=== PATIENT | male | born 1985 | race Two or more races ===

== ENCOUNTER 2017-07-19 18:34 | Emergency (ER) | payer SELFPAY ==
[2017-07-19 19:37] LABS: ADD MAN DIFF? NO
[2017-07-19 19:38] LABS: BASO % 0 % (0-3); EOS # 0.1 x10^3/uL (0.0-0.7); EOS % 2 % (0-3); HEMATOCRIT 44.5 % (39.0-53.0); HEMOGLOBIN 15.4 g/dL (13.0-17.5); LYMPH # 2.5 x10^3/uL (1.0-4.8); LYMPH % 43 % (24-48); MEAN CORPUSCULAR HEMOGLOBIN 31 pg (25-35); MEAN CORPUSCULAR HGB CONC 35 g/dL (31-37); MEAN CORPUSCULAR VOLUME 90 fL (79-100); MONO # 0.4 x10^3/uL (0.0-1.1); MONO % 8 % (0-9); NEUT # 2.8 x10^3uL (1.8-7.7); NEUT % 47 % (31-73); PLATELET COUNT 149 x10^3/uL (140-400); RED BLOOD COUNT 4.97 x10^6/uL (4.30-5.70); RED CELL DISTRIBUTION WIDTH 13.4 % (11.5-14.5); WHITE BLOOD COUNT 5.9 x10^3/uL (4.0-11.0)
[2017-07-19] MEDS: ACETAMINOPHEN 325 MG TABLET. PO (19:50)
[2017-07-19] MEDS: MECLIZINE HCL 12.5 MG TABLET. PO (19:50)
[2017-07-19 19:56] LABS: ANION GAP 8 (6-14); BLOOD UREA NITROGEN 21 mg/dL (8-26); BUN/CREATININE RATIO 21 (6-20); CALCIUM 9.1 mg/dL (8.5-10.1); CARBON DIOXIDE 28 mmol/L (21-32); CHLORIDE 103 mmol/L (98-107); GFR 87.2; GLUCOSE 115 mg/dL (70-99); POTASSIUM 3.5 mmol/L (3.5-5.1); SODIUM 139 mmol/L (136-145)
[2017-07-19 19:59] LABS: BILIRUBIN,URINE NEGATIVE (NEG); CLARITY,URINE CLEAR; COLOR,URINE YELLOW; GLUCOSE,URINE NEGATIVE (NEG); NITRITE,URINE NEGATIVE (NEG); PROTEIN,URINE NEGATIVE (NEG-TRACE); UROBILINOGEN,URINE 0.2 mg/dL (0.2 mg/dL)
[2017-07-19 20:03] LABS: ALBUMIN 4.4 g/dL (3.4-5.0); ALBUMIN/GLOBULIN RATIO 1.3 (1.0-1.7); ALK PHOS 111 U/L (46-116); ALT (SGPT) 38 U/L (16-63); AST (SGOT) 19 U/L (15-37); BACTERIA,URINE 0 /HPF (0-FEW); CREATINE KINASE 429 U/L (39-308); MAGNESIUM 2.3 mg/dL (1.8-2.4); RBC,URINE 0 /HPF (0-2); SQUAMOUS EPITHELIAL CELL,UR OCC /LPF; TOTAL BILIRUBIN 0.4 mg/dL (0.2-1.0); TOTAL PROTEIN 7.9 g/dL (6.4-8.2); WBC,URINE 0 /HPF (0-4)
[2017-07-19 20:05] LABS: TROPONINI < 0.017 ng/mL (0.000-0.055)
== END 2017-07-19 21:35 | disposition home or self-care (01) ==
LOC: ER 18:34
DX: R42 Dizziness and giddiness (principal); R51 Headache; M62.82 Rhabdomyolysis; F41.9 Anxiety disorder, unspecified; K21.9 Gastro-esophageal reflux disease without esophagitis
CPT/HCPCS: 36415; 80053; 81001; 82550; 83735; 84484; 85025; 93005; 99285-25; J8597

== ENCOUNTER 2017-07-27 16:34 | Emergency (ER) | payer SELFPAY ==
[2017-07-27] MEDS: KETOROLAC 60 MG/2 ML INJ. IM (17:39)
== END 2017-07-27 18:31 | disposition home or self-care (01) ==
LOC: ER 16:34
DX: F41.9 Anxiety disorder, unspecified (principal); R42 Dizziness and giddiness; R51 Headache; K21.9 Gastro-esophageal reflux disease without esophagitis
CPT/HCPCS: 70450; 96372; 99284; J1885

== ENCOUNTER 2020-06-15 20:28 | Emergency (ER) | payer SELFPAY ==
[~2020-06-15] VITALS: Ht 170.2 cm; Wt 76.6 kg
[~2020-06-15 20:28] MED LIST: ACET325T9 PO; HYDR25TA PO; MECL-75 PO; ONDA4TAB10 SL
--- NOTE | 2020-06-16 01:02 | PHYS DOC ---
Past Medical History Past Medical History: Anxiety, GERD, Migraines Past Surgical History: No Surgical History Smoking Status: Never Smoker Alcohol Use: None Drug Use: None General Adult EDM: Chief Complaint: MULTIPLE COMPLAINTS HPI: HPI: Patient is a 34-year-old [place]-speaking male presenting for migraine. Initial history obtained by myself and further confirmed with direct care counselor services. Reports x8 days of migraine headache that is a known issue for patient. This has not resolved with ibuprofen administration. Reports calling primary care physician earlier in the day and discussing symptoms, it was advised that he report to our ER for evaluation. Migraines are typical for him, no change in symptoms or other concerning features such as motor or sensory function changes, no neurologic deficits reported. No fever, no signs or symptoms of systemic disease Review of Systems: Review of Systems: Fourteen body systems of review of systems have been reviewed. See HPI for pertinent positives and negative responses, other walsh all other systems are negative, non-pertinent or non-contributory Heart Score: C/O Chest Pain: No HEART Score for Chest Pain: HEART Score for Chest Pain Response (Comments) Value History Slighlty/Non-Suspicious 0 ECG Normal 0 Age < 45 0 Risk Factors No Risk Factors 0 Troponin < Normal Limit 0 Total 0 Risk Factors: Risk Factors: DM, Current or recent (<one month) smoker, HTN, HLP, family history of CAD, obesity. Risk Scores: Score 0 - 3: 2.5% MACE over next 6 weeks - Discharge Home Score 4 - 6: 20.3% MACE over next 6 weeks - Admit for Clinical Observation Score 7 - 10: 72.7% MACE over next 6 weeks - Early Invasive Strategies Allergies: Allergies: Allergies Coded Allergies Type Severity Reaction Last Updated Verified No Known Drug Allergies 07/19/17 No Physical Exam: PE: Constitutional: Well developed, well nourished, no acute distress, non-toxic appearance. HENT: Normocephalic, atraumatic, bilateral external ears normal, oropharynx moist, no oral exudates, nose normal. Eyes: PERRLA, EOMI, conjunctiva normal, no discharge. Neck: Normal range of motion, no tenderness, supple, no stridor. No meningeal signs, negative Kernig and Brudzinski Cardiovascular: Heart rate regular, sinus rhythm, no murmurs rubs or gallops Lungs & Thorax: Bilateral breath sounds clear to auscultation Abdomen: Bowel sounds normal, soft, no tenderness, no masses, no pulsatile masses. Nonsurgical abdomen, no peritoneal signs Skin: Warm, dry, no erythema, no rash. Back: No tenderness, no CVA tenderness. Extremities: No tenderness, no cyanosis, no clubbing, ROM intact, no edema. Neurologic: Alert and oriented X 3, cranial nerves II through XII intact, normal motor & sensory function, no focal deficits noted. Psychologic: Affect normal, judgement normal, mood normal. Current Patient Data: Labs: Laboratory Tests Test 06/16/20 01:00 White Blood Count 5.7 x10^3/uL Red Blood Count 4.79 x10^6/uL Hemoglobin 14.4 g/dL Hematocrit 42.4 % Mean Corpuscular Volume 89 fL Mean Corpuscular Hemoglobin 30 pg Mean Corpuscular Hemoglobin Concent 34 g/dL Red Cell Distribution Width 12.8 % Platelet Count 180 x10^3/uL Neutrophils (%) (Auto) 63 % Lymphocytes (%) (Auto) 28 % Monocytes (%) (Auto) 8 % Eosinophils (%) (Auto) 1 % Basophils (%) (Auto) 1 % Neutrophils # (Auto) 3.6 x10^3/uL Lymphocytes # (Auto) 1.6 x10^3/uL Monocytes # (Auto) 0.4 x10^3/uL Eosinophils # (Auto) 0.0 x10^3/uL Basophils # (Auto) 0.0 x10^3/uL Platelet Estimate Adequate Giant Platelets Few Sodium Level 140 mmol/L Potassium Level 4.0 mmol/L Chloride Level 105 mmol/L Carbon Dioxide Level 27 mmol/L Anion Gap 8 Blood Urea Nitrogen 23 mg/dL Creatinine 0.7 mg/dL Estimated GFR (Cockcroft-Gault) 129.1 Glucose Level 93 mg/dL Calcium Level 8.7 mg/dL Troponin I Quantitative < 0.017 ng/mL Current Medications Medications (Trade) Dose Ordered Sig/Aggie Route PRN Reason Start Time Stop Time Status Last Admin Dose Admin Sodium Chloride 1,000 ml @ 1,000 mls/hr 1X ONCE IV 06/16/20 01:30 06/16/20 02:29 DC 06/16/20 01:11 Prochlorperazine Edisylate (Compazine) 10 mg 1X ONCE IV 06/16/20 01:30 06/16/20 01:31 DC 06/16/20 01:14 Diphenhydramine HCl (Benadryl) 25 mg 1X ONCE IVP 06/16/20 01:30 06/16/20 01:31 DC 06/16/20 01:18 Ketorolac Tromethamine (Toradol 15mg Vial) 15 mg 1X ONCE IVP 06/16/20 01:30 06/16/20 01:31 DC 06/16/20 01:20 Vital Signs: Vital Signs Date Time Temp Pulse Resp B/P (MAP) Pulse Ox O2 Delivery O2 Flow Rate FiO2 06/16/20 00:20 74 18 142/84 (103) 100 Room Air 06/16/20 00:00 98.9 98.9 EKG: EKG: EKG ordered and interpreted by myself at 0123 hrs. as sinus rhythm at 71 bpm, prolonged QTC at 480 otherwise unremarkable intervals, no axis deviation, no obvious ischemic findings, no STEMI Radiology/Procedures: Radiology/Procedures: [] Course & Med Decision Making: Course & Med Decision Making Discussed with the patient all findings and diagnostic testing. I discussed most likely diagnosis of migraine headache. Patient's presenting symptoms completely resolved with ER intervention. I reviewed entirety of diagnostic ER work-up and physical exam findings that were all nonconcerning for emergent or surgical issues. I stressed need for close outpatient follow-up to review today's ER visit. Strict return precautions were also discussed at length with good understanding by patient. Patient voiced understanding and agreement with the plan. Patient knows to come back for repeat evaluation if concerning signs or symptoms present prior to outpatient follow-up. Hemodynamically stable, ambulatory and well-appearing at time of disposition. Dragon Disclaimer: [place] Disclaimer: This electronic medical record was generated, in whole or in part, using a voice recognition dictation system. Departure Departure Impression: Primary Impression: Migraine headache Disposition: HOME / SELF CARE / HOMELESS Condition: IMPROVED Referrals: NO PCP (PCP) Patient Instructions: Migraine Headache YINKA LUJAN DO June 16, 2020 01:02
[2020-06-16 01:17] LABS: BASO % 1 % (0-3); EOS % 1 % (0-3); HEMATOCRIT 42.4 % (39.0-53.0); HEMOGLOBIN 14.4 g/dL (13.0-17.5); LYMPH # 1.6 x10^3/uL (1.0-4.8); LYMPH % 28 % (24-48); MEAN CORPUSCULAR HEMOGLOBIN 30 pg (25-35); MEAN CORPUSCULAR HGB CONC 34 g/dL (31-37); MEAN CORPUSCULAR VOLUME 89 fL (79-100); MONO # 0.4 x10^3/uL (0.0-1.1); MONO % 8 % (0-9); NEUT # 3.6 x10^3/uL (1.8-7.7); NEUT % 63 % (31-73); PLATELET COUNT 180 x10^3/uL (140-400); RED BLOOD COUNT 4.79 x10^6/uL (4.30-5.70); RED CELL DISTRIBUTION WIDTH 12.8 % (11.5-14.5); WHITE BLOOD COUNT 5.7 x10^3/uL (4.0-11.0)
--- NOTE | 2020-06-16 01:19 | EKG ---
[facility] [address] [place] [address] Test Date: 2020-06-16 Test Time: 01:14:27 Pat Name: KLAUS OCHOA Department: Room: Gender: M Drafter Chief Design: : 1985 Requested By: YINKA LUJAN Order Number: [id number] Reading MD: Measurements Intervals [place] Rate: 71 P: GA: QRS: 62 QRSD: 108 T: 27 QT: 442 QTc: 480 Interpretive Statements IRREGULAR RHYTHM, NO P-WAVE FOUND PROLONGED QT NO SPECIFIC ECG ABNORMALITIES RI6.02 No previous ECG available for comparison
[2020-06-16 01:26] LABS: CALCIUM 8.7 mg/dL (8.5-10.1); CREATININE 0.7 mg/dL (0.7-1.3); GFR 129.1
[2020-06-16] MEDS ORDERED: IV NORMAL SALINE 1000ML BAG 1,000 ML IV ONE (01:30)
[2020-06-16] MEDS ORDERED: KETOROLAC 15 MG/ML VIAL. IVP ONE (01:30)
[2020-06-16] MEDS ORDERED: diphenhydrAMINE 50 MG/ML VIAL IVP ONE (01:30)
[2020-06-16] MEDS ORDERED: PROCHLORPERAZINE 10 MG/2 ML VIAL. IV ONE (01:30)
[2020-06-16 01:52] LABS: PLT ESTIMATE ADEQUATE (ADEQUATE)
[2020-06-16 02:53] VITALS: BP 120/74
== END 2020-06-16 03:05 | disposition home or self-care (01) ==
LOC: ER 20:28
DX: G43.909 Migraine, unspecified, not intractable, without status migrainosus (principal); F41.9 Anxiety disorder, unspecified; K21.9 Gastro-esophageal reflux disease without esophagitis
CPT/HCPCS: 36415; 80048; 84484; 85025; 93005; 96361; 96374; 96375; 99285; J0780; J1200; J1885; J7030